=== PATIENT | male | born 1975 | race Caucasian/White ===

== ENCOUNTER 2023-01-20 07:31 | Emergency (ER) | payer BC, SELFPAY ==
[2023-01-20 07:43] VITALS: BP 180/100; PULSE 72; RESP 18; TEMP 36.7; O2SAT 100; BMI 35.2
[2023-01-20 08:00] LABS: Basophils Absolute Auto 0.02 K/uL (0.00-0.30); Basophils Percent Auto 0.4 % (0.0-3.0); Eosinophils Absolute Auto 0.11 K/uL (0.00-0.50); Eosinophils Percent Auto 2.3 % (0.0-7.0); Hematocrit 48.2 % (37.0-53.0); Hemoglobin* 16.3 gm/dL (13.5-17.5); Immature Granulocytes Abs Auto 0.02 K/uL (0.00-0.30); Immature Granulocytes Pct Auto 0.4 %; Lymphocytes Percent Auto 18.4 % (20-44); Mean Corpuscular HGB Conc 34 gm/dL (32-36); Mean Corpuscular Hemoglobin 28 pg (26-34); Mean Corpuscular Volume 83 fL (80-100); Monocytes Percent Auto 9.7 % (0.0-11.0); Neutrophils Absolute Auto 3.32 K/uL (1.7-7.0); Neutrophils Percent Auto 68.8 % (42.0-72.0); Platelet Count* 180 K/uL (140-440); RDW Coefficient of Variation % 13.5 % (11.5-15.5); Red Blood Count 5.78 m/uL (4.30-5.90); White Blood Count* 4.83 K/uL (4.50-11.00)
[2023-01-20 08:02] LABS: Slide Review Reflex No
[2023-01-20] MEDS: ONDANSETRON 2 MG/ML inj 4 MG IVP (08:05)
[2023-01-20] MEDS: KETOROLAC 15 MG/ML inj IVP (08:05)
[2023-01-20 08:17] LABS: Chloride* 108 mmol/L (96-114); Potassium* 4.6 mmol/L (3.6-5.1); Sodium* 140 mmol/L (135-149)
[2023-01-20 08:20] LABS: Creatinine* 0.9 mg/dL (0.5-1.5); Estimated Glomerular Filt Rate 107 ml/min
[2023-01-20 08:21] LABS: Blood Urea Nitrogen* 18 mg/dL (5-24); Calcium* 9.1 mg/dL (8.4-10.6); Carbon Dioxide* 26 mmol/L (20-32); Glucose* 131 mg/dL (60-115)
--- NOTE | 2023-01-20 08:27 | CRLHL7_ITS ---
For Patients: As a result of the Century Cures Act, medical imaging exams and procedure reports are released immediately into your electronic medical record. You may view this report before your referring provider. If you have questions, please contact your health care provider. INDICATION: Left flank pain TECHNIQUE: CT abdomen and pelvis without contrast, stone protocol. COMPARISON: None. FINDINGS: Kidney/ureters: Right interpolar renal cyst measuring 2.6 cm. Ureteral calculus with a 6-7 mm stone within the left proximal to mid ureter resulting in mild hydroureteronephrosis with periureteral and perinephric inflammation. No additional intrarenal calculi are identified. 1.3 cm exophytic lesion off the upper pole the right kidney which is incompletely characterized on this unenhanced CT but appears solid. Liver/gallbladder/bile ducts: The liver is normal in size, shape and attenuation. Gallbladder is normal without visualized stones or inflammation. No biliary dilatation. Spleen/pancreas/adrenal glands: The spleen, adrenal glands and pancreas are within normal limits. GI tract: No bowel obstruction. Mild fecal retention. Normal appendix. Abdominal wall/omentum/peritoneum: No free air or significant free fluid. No mass or inflammation. Lymph nodes: No lymphadenopathy. Pelvis: Unremarkable pelvis. Lower chest: Unremarkable. Bones: Mild degenerative spondylosis. IMPRESSION: Ureteral calculus with a 6-7 mm stone within the left proximal to mid ureter resulting in mild hydroureteronephrosis with periureteral and perinephric inflammation. There is a 1.3 cm exophytic lesion off the upper pole the right kidney which is incompletely characterized on this unenhanced CT but appears solid. Consider renal ultrasound or CT/MRI renal mass protocol to further characterize on a nonemergent basis. Please note that all CT scans at this facility use dose modulation, iterative reconstruction, and/or weight-based dosing when appropriate to reduce radiation dose to as low as reasonably achievable. Dictated by Mac Combs MD @ 01/20/2023 9:30:24 AM (Electronically Signed)
--- NOTE | 2023-01-20 08:28 | ED_ITS ---
HPI - General Adult General Chief complaint: Flank Pain Stated complaint: Abdominal pain/radiates to back/groin pain Time Seen by Provider: 01/20/23 08:07 Source: patient Mode of arrival: ambulatory Limitations: no limitations History of Present Illness HPI narrative: Patient is a 47-year-old male who developed onset of left sided abdominal pain with radiation into the left testicle about an hour prior to arrival. Pain became severe which prompted him to leave work and come to the ER. He has had some nausea but no vomiting, feels like he has become a little diaphoretic due to severity of the pain. No history of pain like this previously. He has not had dysuria or hematuria. Had a normal bowel movement this morning, sort of has a sense that he needs to have bowel movement now. Pain now is radiating to the left flank. He has not had fevers. No trauma. No previous abdominal surgeries other than vasectomy about 8 years ago. No history of previous kidney stones. Other medical history he denies. No chest pain. Related Data Previous Rx's Medication Instructions Recorded oxycodone 5 mg tablet 5 mg PO Q6H PRN pain #10 tabs 01/20/23 tamsulosin 0.4 mg capsule (Flomax) 0.4 mg PO DAILY #7 caps 01/20/23 Allergies Allergy/AdvReac Type Severity Reaction Status Date / Time No Known Drug Allergies Allergy Verified 01/20/23 07:43 Review of Systems Status of ROS: Reports: 6 or more systems reviewed and unremarkable except as noted in History and below [facility] Social History Smoking Status: Never smoker Do you use any of these nicotine containing products: None Second hand tobacco smoke exposure: No How often do you have a drink containing alcohol: never AUDIT-C Alcohol total score: 0 Non-prescribed substance use: denies use service: No Exam Narrative: Exam Narrative: Vital signs as noted above. In general, an alert, nontoxic male, writhing around, looks uncomfortable. Head: Normocephalic, atraumatic. Eyes: Pupils are equal reactive. Extraocular movements are full. Conjunctivae are normal. ENT: Mucous membranes are moist. Throat is normal. Neck: Supple without lymphadenopathy. Heart: Regular rate and rhythm. No murmur or rub. Lungs: Clear bilaterally. No increased work of breathing, crackles or wheezes. Abdomen: Soft and nondistended. Essentially nontender to palpation. No CVA tenderness. No obvious masses. Bowel sounds are present. No rebound guarding or rigidity. Extremities: Well perfused. No edema. No calf tenderness. Pulses intact. Neurologic: Patient is alert and oriented to person and place. Speech is fluent. Face is symmetric. Moves all extremities equally. Affect: Normal. Skin: Warm and dry. Well perfused. Const: Vital Signs, click to edit/add: Vital Signs - 24 hr 01/20/23 07:43 01/20/23 08:32 Temperature 98.0 F 97.8 F Pulse Rate [Pulse Oximeter] 72 65 Respiratory Rate 18 18 Blood Pressure [Ri ght Upper Arm] 180/100 H 165/113 H Pulse Oximetry 100 100 Oxygen Delivery Me thod Room Air Room Air Documenting provider has reviewed patient's vital signs: yes Course Course Hospital Course: An IV was placed, he was given Toradol initially as well as a L of normal saline. He was also given Zofran. I looked at his kidneys with the bedside ultrasound, he did appear to have mild hydronephrosis on the left. On the right, he appeared to have a cystic lesion. His aorta looked normal. His gallbladder was nontender, did not see significant wall thickening, no stones. He had a CBC as well as a basic metabolic panel, and went over for CT scan of the abdomen without contrast. Diagnostic considerations included kidney stone, pyelonephritis, dissection, bowel obstruction, diverticulitis, among others. His CBC showed a normal white blood cell count, hemoglobin of 16.3, normal platelets. Metabolic panel was normal, BUN was 18, creatinine was 0.9. Urinalysis did not return until later in his course, but showed 10-25 red blood cells and 0-[address] scan of the abdomen by my review showed mild hydronephrosis and what I measured as about a 5 mm stone in the proximal ureter. Again noted is the lesion in the right kidney. Final radiology report is as follows: IMPRESSION: Ureteral calculus with a 6-7 mm stone within the left proximal to mid ureter resulting in mild hydroureteronephrosis with periureteral and perinephric inflammation. There is a 1.3 cm exophytic lesion off the upper pole the right kidney which is incompletely characterized on this unenhanced CT but appears solid. Consider renal ultrasound or CT/MRI renal mass protocol to further characterize on a nonemergent basis. Patient did require further pain medication, he initially had 4 mg of morphine, did not feel that that was effective and went on to have 0.5 mg of Dilaudid and a 0.5 mg of Ativan. He was much improved after that. Discussed that these are typically managed as an outpatient, he actually made an appointment with [facility] from the ER for next week. The lesion in the right kidney will need additional follow-up per Radiology, did appear to be more cystic on ultrasound when I looked at it, but certainly will want that to be followed up officially. This can likely be done when he sees the urologist, reviewed that with the patient and his as well. There is no evidence of infection on his UA. Pain is controlled at this time. I think is reasonable to let him go home, if he is not able to manage at home in terms of pain control, certainly return to the emergency department. I gave him an oxycodone orally here so that he has something in his system as his IV pain medications wear off. Recommend baseline pain control with ibuprofen 400 mg 3 times daily. I do measure this stone slightly smaller than the radiologist, I think it is unlikely to pass on its own, but I am putting him on some Flomax as Urology seems typically to like pupil to be on that medication. If he develops any signs of infection, fever, chills, vomiting etcetera, return to the emergency department. Oxycodone #10 prescribed for more severe pain. Vital Signs Vital signs: Initial Vital Signs Temperature 98.0 F 01/20/23 07:43 Temperature Source Temporal Artery Scan 01/20/23 07:43 Pulse Rate 72 01/20/23 07:43 Pulse Rhythm 01/20/23 07:43 Respiratory Rate 18 01/20/23 07:43 Blood Pressure 180/100 H 01/20/23 07:43 Blood Pressure Mean 126 01/20/23 07:43 Blood Pressure Position Sitting 01/20/23 07:43 Pulse Oximetry 100 01/20/23 07:43 Oxygen Delivery Method 01/20/23 07:43 Vital Signs Temperature 98.0 F 01/20/23 07:43 Pulse Rate 72 01/20/23 07:43 Respiratory Rate 18 01/20/23 07:43 Blood Pressure 180/100 H 01/20/23 07:43 Pulse Oximetry 100 01/20/23 07:43 Oxygen Delivery Method 01/20/23 07:43 Temperature 97.8 F 01/20/23 08:32 Pulse Rate 65 01/20/23 08:32 Respiratory Rate 18 01/20/23 08:32 Blood Pressure 165/113 H 01/20/23 08:32 Pulse Oximetry 100 01/20/23 08:32 Oxygen Delivery Method 01/20/23 08:32 Medical Decision Making Lab Data Labs: Lab Results 01/20/23 01/20/23 01/20/23 Range/Units 07:55 07:55 09:33 WBC 4.83 (4.50-11.00) K/uL RBC 5.78 (4.30-5.90) m/uL Hgb 16.3 (13.5-17.5) gm/dL Hct 48.2 (37.0-53.0) % MCV 83 (80-100) fL MCH 28 (26-34) pg MCHC 34 (32-36) gm/dL RDW Coeff of Nidia 13.5 (11.5-15.5) % Plt Count 180 (140-440) K/uL Neut % (Auto) 68.8 (42.0-72.0) % Lymph % (Auto) 18.4 L (20-44) % [place] % (Auto) 9.7 (0.0-11.0) % Eos % (Auto) 2.3 (0.0-7.0) % Baso % (Auto) 0.4 (0.0-3.0) % Neut # (Auto) 3.32 (1.7-7.0) K/uL Lymph # (Auto) 0.90 (0.90-2.90) K/uL [place] # (Auto) 0.50 (0.00-0.90) K/UL Eos # (Auto) 0.11 (0.00-0.50) K/uL Baso # (Auto) 0.02 (0.00-0.30) K/uL Sodium 140 (135-149) mmol/L Potassium 4.6 (3.6-5.1) mmol/L Chloride 108 (96-114) mmol/L Carbon Dioxide 26 (20-32) mmol/L BUN 18 (5-24) mg/dL Creatinine 0.9 (0.5-1.5) mg/dL Estimated Creat Clear 105.90 Estimated GFR 107 ml/min Glucose 131 H (60-115) mg/dL Calcium 9.1 (8.4-10.6) mg/dL Urine Color Yellow (Yellow) Urine Appearance Clear (Clear) Urine pH 6.0 (5.0-8.5) Ur Specific [place] 1.020 (1.000-1.030) Urine Protein Negative (Negative) Urine Glucose (UA) Negative (Negative) Urine Ketones Negative (Negative) Urine Blood 1+ A (Negative) Urine Nitrite Negative (Negative) Urine Bilirubin Negative (Negative) Urine Urobilinogen 0.2 (0.2-1.0) Ur Leukocyte Esterase Negative (Negative) Urine RBC 10-25 A (0-2) Urine WBC 0-2 (0-5) Ur Squamous Epith Cells None (None-Few) Urine Bacteria None (None) Discharge Plan Discharge Clinical Impression: Calculus of proximal left ureter, Lesion of right [place] kidney Patient Disposition: Home, Self-Care Condition: Improved Instructions: Ureteral Stones (ED) Additional Instructions: Appointment with [facility] in [place] ([address] [place] [address]) next ThursdayJanuary 28 at 8:[address] Gutierrez For your kidney stone, ibuprofen 400 mg 3 times daily with food. Oxycodone as needed for uncontrolled pain. Flomax as prescribed. If you have new symptoms such as fever, vomiting, chills, etcetera, return right away to the emergency department. If you have severe uncontrolled pain despite medications, return to the ER. Otherwise, urology follow-up as planned. You do have a lesion on your right kidney which is incompletely characterized on the CT scan, and the radiologist would recommend further imaging with renal ultrasound or specialized renal imaging to further evaluate this. This can likely be ordered by the urologist, or by your primary care doctor. Would recommend follow-up with your primary care doctor to review your blood pressure. Prescriptions: New oxycodone 5 mg tablet 5 mg PO Q6H PRN (Reason: pain) Qty: 10 0RF tamsulosin [Flomax] 0.4 mg capsule 0.4 mg PO DAILY Qty: 7 2RF Follow Up/Referrals: Camryn Reyes MD [Emergency Provider] - Stand Alone Forms: [employer] Info Instructions
[2023-01-20 08:32] VITALS: BP 165/113; PULSE 65; RESP 18; TEMP 36.6; O2SAT 100
--- NOTE | 2023-01-20 08:33 | PC.NURSE ---
Pt ready for CT, still unable to provide urine. Call light given, will continue to reassess. Pain now 5/10 after IV toradol, will notify RN if pain increasing.
--- NOTE | 2023-01-20 08:44 | PC.NURSE ---
pt to CT via wheelchair.
[2023-01-20] MEDS: 0.9 % SODIUM CHLORIDE 1000 ml 1,000 ML IV (08:55)
[2023-01-20] MEDS: MORPHINE 4 MG/ML INJ IVP (08:55)
--- NOTE | 2023-01-20 09:05 | PC.NURSE ---
physician in talking with patient re: ct. urine collection and strainer given to pt, instructed on how to use.
--- NOTE | 2023-01-20 09:33 | PC.NURSE ---
Pt states still very uncomfortable, pain 5/10. Did not like the way morphine made him feel foggy, states it didn't help much with pain just made him feel fuzzy. Pt also states feeling anxious.
[2023-01-20] MEDS: LORazepam 2 MG/ML inj 0.5 MG IVP (09:42)
[2023-01-20] MEDS: HYDROmorphone 0.5 mg/0.5 ml inj IVP (09:43)
[2023-01-20 09:49] LABS: Appearance Urine Clear (Clear); Bilirubin Urine Negative (Negative); Blood Urine 1+ (Negative); Color Urine Yellow (Yellow); Glucose Urine Negative (Negative); Ketones Urine Negative (Negative)
[2023-01-20 09:50] LABS: Leukocyte Esterase Urine Negative (Negative); Nitrite Urine Negative (Negative); Protein Urine Negative (Negative); Urobilinogen Urine 0.2 (0.2-1.0); WBC Urine 0-2 (0-5)
--- NOTE | 2023-01-20 10:47 | PC.NURSE ---
Calling [facility] per pt request to try and make appt, CT results faxed.
[2023-01-20] MEDS: OXYCODONE 5 MG TABLET PO (11:38)
[2023-01-20 11:39] VITALS: BP 152/107; PULSE 77; RESP 16; TEMP 36.7; O2SAT 99
== END 2023-01-20 12:05 | disposition home or self-care (01) ==
PROVIDERS: Family Medicine; Emergency Provider Emergency Medicine
DX: N20.1 Calculus of ureter (principal); N28.9 Disorder of kidney and ureter, unspecified
CPT/HCPCS: 36415; 74176; 80048; 81001; 85025; 96374; 96375; 99284; A9270; J1170; J1885; J2060; J2270; J2405; J7030